=== PATIENT | female | born 1940 | race Caucasian/White ===

== ENCOUNTER → 2017-02-25 | Outpatient (CLI) | payer MEDICARE ==
[~2017-02-25] MED LIST: ALBU8.5H3 INH; AMLO5TAB4 PO; ASPI-496 PO; AZEL137S4 NAS; BENZ100C PO; CARB1TAB PO; CETI10TA24 PO; CHOL10003 PO; EZET10TA3 PO; FAMO10TA31 PO; HYDR10TA4 PO; LEVO75TA5 PO; LISI1TAB3 PO; LORA-446 PO; MONT10TA6 PO; MULT-658 PO; OMEP20TA62 PO; OMNIPAQUE 350 MG/ML, 100ML BOTTLE ONE; ONDA4TAB10 PO; PARO10TA24 PO; POLY17PO5 PO; POTA10TA PO; PROP10TA PO; PROP120C3 PO; SENN1TAB67 PO; TOPI25TA32 PO; UBID200C4 PO; ZOLP-413 PO; [UNRECOGNIZED DRUG - CODE] PO
== END | disposition home or self-care (01) ==
LOC: PETCFH 09:49
PROVIDERS: ATTEND Internal Medicine Hematology & Oncology
DX: C50.911 Malignant neoplasm of unspecified site of right female breast (principal); M95.4 Acquired deformity of chest and rib
CPT/HCPCS: 78306; A9503; Q9967

== ENCOUNTER → 2017-02-25 | Outpatient (CLI) | payer MEDICARE ==
[~2017-02-25] MED LIST changes: -OMNIPAQUE 350 MG/ML, 100ML BOTTLE ONE
== END | disposition home or self-care (01) ==
LOC: CFH 09:43
PROVIDERS: ATTEND Internal Medicine Hematology & Oncology
DX: C50.911 Malignant neoplasm of unspecified site of right female breast (principal); J90 Pleural effusion, not elsewhere classified; R91.1 Solitary pulmonary nodule
CPT/HCPCS: 71260; 74177

== ENCOUNTER → 2017-05-27 | Outpatient (CLI) | payer MEDICARE ==
[~2017-05-27] MED LIST changes: +OMNIPAQUE 350 MG/ML, 100ML BOTTLE ONE
== END | disposition home or self-care (01) ==
LOC: CFH 11:40
PROVIDERS: ATTEND Internal Medicine Hematology & Oncology
DX: C50.911 Malignant neoplasm of unspecified site of right female breast (principal); C79.51 Secondary malignant neoplasm of bone; R91.8 Other nonspecific abnormal finding of lung field; J84.10 Pulmonary fibrosis, unspecified; J18.9 Pneumonia, unspecified organism
CPT/HCPCS: 71260; 74177; Q9967

== ENCOUNTER → 2017-05-27 | Outpatient (CLI) | payer MEDICARE ==
[~2017-05-27] MED LIST changes: -OMNIPAQUE 350 MG/ML, 100ML BOTTLE ONE
== END | disposition home or self-care (01) ==
LOC: PETCFH 11:37
PROVIDERS: ATTEND Internal Medicine Hematology & Oncology
DX: C79.51 Secondary malignant neoplasm of bone (principal); C50.911 Malignant neoplasm of unspecified site of right female breast
CPT/HCPCS: 78306; A9503

== ENCOUNTER → 2017-12-15 | Outpatient (CLI) | payer MEDICARE ==
[~2017-12-15] MED LIST changes: -ALBU8.5H3 INH; +ALBU8.5H8 INH; +EZET10TA18 PO; -EZET10TA3 PO; +OMNIPAQUE 350 MG/ML, 100ML BOTTLE ONE; -PARO10TA24 PO; +PARO10TA56 PO; -UBID200C4 PO; +UBID200C7 PO
== END | disposition home or self-care (01) ==
LOC: CFH 10:53
PROVIDERS: ATTEND Internal Medicine Hematology & Oncology
DX: C50.911 Malignant neoplasm of unspecified site of right female breast (principal); C79.51 Secondary malignant neoplasm of bone; R91.8 Other nonspecific abnormal finding of lung field; Z85.3 Personal history of malignant neoplasm of breast
CPT/HCPCS: 71260; 74177; Q9967

== ENCOUNTER → 2017-12-15 | Outpatient (CLI) | payer MEDICARE ==
[~2017-12-15] MED LIST changes: -OMNIPAQUE 350 MG/ML, 100ML BOTTLE ONE
== END | disposition home or self-care (01) ==
LOC: PETCFH 10:52
PROVIDERS: ATTEND Internal Medicine Hematology & Oncology
DX: C50.911 Malignant neoplasm of unspecified site of right female breast (principal)
CPT/HCPCS: 78306; A9503

== ENCOUNTER → 2018-02-10 | Outpatient (CLI) | payer MEDICARE | END | disposition home or self-care (01) | LOC: CVU 11:47 | PROVIDERS: ATTEND Internal Medicine Cardiovascular Disease | DX: I35.0 Nonrheumatic aortic (valve) stenosis (principal); Z85.3 Personal history of malignant neoplasm of breast; E78.5 Hyperlipidemia, unspecified | CPT/HCPCS: 93306 ==

== ENCOUNTER → 2018-08-05 | Outpatient (CLI) | payer MEDICARE ==
[~2018-08-05] MED LIST changes: +OMNIPAQUE 350 MG/ML, 100ML BOTTLE ONE
== END | disposition home or self-care (01) ==
LOC: PETCFH 09:26
PROVIDERS: ATTEND Internal Medicine Hematology & Oncology
DX: C79.51 Secondary malignant neoplasm of bone (principal); C50.911 Malignant neoplasm of unspecified site of right female breast; J90 Pleural effusion, not elsewhere classified; R91.8 Other nonspecific abnormal finding of lung field; R59.0 Localized enlarged lymph nodes; Z90.49 Acquired absence of other specified parts of digestive tract
CPT/HCPCS: 71260; 74177; 78306; A9503; Q9967

== ENCOUNTER → 2018-09-16 | Outpatient (CLI) | payer MEDICARE ==
[~2018-09-16] MED LIST changes: -OMNIPAQUE 350 MG/ML, 100ML BOTTLE ONE; +OMNIPAQUE 350 MG/ML, 75ML BOTTLE ONE
== END | disposition home or self-care (01) ==
LOC: CFH 09:25
PROVIDERS: ATTEND Internal Medicine Hematology & Oncology
DX: J90 Pleural effusion, not elsewhere classified (principal); R59.9 Enlarged lymph nodes, unspecified; R91.8 Other nonspecific abnormal finding of lung field; C50.911 Malignant neoplasm of unspecified site of right female breast
CPT/HCPCS: 71260; Q9967

== ENCOUNTER → 2019-02-08 | Outpatient (CLI) | payer MEDICARE ==
[~2019-02-08] MED LIST changes: -OMNIPAQUE 350 MG/ML, 75ML BOTTLE ONE; -PROP10TA PO; +PROP10TA16 PO
== END | disposition home or self-care (01) ==
LOC: CFH 10:50
PROVIDERS: ATTEND Internal Medicine Cardiovascular Disease
DX: I08.8 Other rheumatic multiple valve diseases (principal); I11.9 Hypertensive heart disease without heart failure; I48.91 Unspecified atrial fibrillation; E78.5 Hyperlipidemia, unspecified; Z85.3 Personal history of malignant neoplasm of breast
CPT/HCPCS: 93306

== ENCOUNTER 2019-03-25 09:54 | Outpatient (CLI) | payer MEDICARE ==
[2019-03-25] MEDS ORDERED: OMNIPAQUE 350 MG/ML, 100ML BOTTLE ONE (15:00)
[2019-03-25] MEDS ORDERED: PARO40TA61 PO (15:29)
[2019-03-25] MEDS ORDERED: LORA2VIA6 PO (19:27)
[2019-03-26] MEDS ORDERED: ENOX60SY4 SC (16:05)
== END 2019-03-25 23:59 | disposition home or self-care (01) ==
LOC: RAD 09:54
PROVIDERS: ATTEND Internal Medicine Hematology & Oncology
DX: I26.99 Other pulmonary embolism without acute cor pulmonale (principal); C50.911 Malignant neoplasm of unspecified site of right female breast; J90 Pleural effusion, not elsewhere classified; J98.4 Other disorders of lung; R91.8 Other nonspecific abnormal finding of lung field
CPT/HCPCS: 71260; 74177; Q9967

== ENCOUNTER 2019-05-18 11:37 | Outpatient (CLI) | payer MEDICARE ==
[~2019-05-18 11:37] MED LIST changes: +ENOX60SY4 SC; +LORA2VIA6 PO; +PARO40TA61 PO
== END 2019-05-18 23:59 | disposition home or self-care (01) ==
LOC: PETCFH 11:37
PROVIDERS: ATTEND Internal Medicine Hematology & Oncology
DX: C50.911 Malignant neoplasm of unspecified site of right female breast (principal)
CPT/HCPCS: 78306; A9503

== ENCOUNTER 2019-06-07 11:34 | Outpatient (CLI) | payer MEDICARE | END 2019-06-07 23:59 | disposition home or self-care (01) | LOC: RAD 11:34 | PROVIDERS: ATTEND Internal Medicine Hematology & Oncology | DX: K59.00 Constipation, unspecified (principal); K76.89 Other specified diseases of liver; R91.8 Other nonspecific abnormal finding of lung field; J90 Pleural effusion, not elsewhere classified; G95.89 Other specified diseases of spinal cord; C50.911 Malignant neoplasm of unspecified site of right female breast | CPT/HCPCS: 71260; 74177; J1642; Q9967 ==

== ENCOUNTER → 2019-10-13 | Outpatient (CLI) | payer MEDICARE ==
[~2019-10-13] MED LIST changes: +CALC-126 PO; +CAPE500T24 PO; +CHOL10002 PO; +CHOL200052 PO; -EZET10TA18 PO; +EZET10TA70 PO; +FURO20TA3 PO; +LISI1TAB23 PO; -LISI1TAB3 PO; +LORA-445 PO; +OMNIPAQUE 350 MG/ML, 100ML BOTTLE ONE; -PROP120C3 PO; +PROP120C50 PO; +RIVA20TA PO; +UBID100C41 PO; +WHEA1POW5 PO
== END | disposition home or self-care (01) ==
LOC: RAD 11:31
PROVIDERS: ATTEND Internal Medicine Hematology & Oncology
DX: J90 Pleural effusion, not elsewhere classified (principal); C50.911 Malignant neoplasm of unspecified site of right female breast; R91.8 Other nonspecific abnormal finding of lung field; C79.51 Secondary malignant neoplasm of bone; K76.9 Liver disease, unspecified; M51.37 Other intervertebral disc degeneration, lumbosacral region; G95.89 Other specified diseases of spinal cord; I10 Essential (primary) hypertension; Z87.891 Personal history of nicotine dependence; Z88.1 Allergy status to other antibiotic agents; Z88.5 Allergy status to narcotic agent; Z91.018 Allergy to other foods; Z90.89 Acquired absence of other organs; Z90.11 Acquired absence of right breast and nipple
CPT/HCPCS: 71260; 74177; 78306; A9503; Q9967